=== PATIENT | male | born 1985 | race Caucasian/White ===

== ENCOUNTER 2022-06-12 21:42 | Emergency (ER) | payer BC, SELFPAY ==
--- NOTE | ~2022-06-12 | CT_ITS ---
EXAMINATION: CT ABDOMEN AND PELVIS WITH CONTRAST CLINICAL INFORMATION: Right kidney stone, status post lithotripsy. COMPARISON: Renal ultrasound 10/03/2014. TECHNIQUE: Multidetector volumetric images were obtained from the superior aspect of the liver through the pubic symphysis following administration 85 mL of Omnipaque 350 intravenous contrast. Sagittal and coronal reformatted images were obtained on the technologist's workstation. Oral contrast: No This CT examination was performed using dose optimization techniques as appropriate, variously including the following: *Automated exposure control *Adjustment of mA and/or kV according to patient size (this includes techniques or standardized protocols for targeted exams where dose is matched to indication/reason for exam; i.e. extremities or head) *Use of iterative reconstruction technique DLP: 563 mGy-cm FINDINGS: LUNG BASES: Right greater than left bibasilar subsegmental atelectasis versus scarring. No focal consolidation or pleural effusion. Symmetric gynecomastia. LIVER, GALLBLADDER, AND BILIARY TREE: The liver is normal in size, shape, and attenuation. No focal hepatic lesion or biliary ductal dilatation is present. The gallbladder is unremarkable with no evidence of radiopaque gallstones, gallbladder wall thickening, or obvious pericholecystic inflammatory changes. PANCREAS: Unremarkable. SPLEEN: Unremarkable. ADRENAL GLANDS: Unremarkable. KIDNEYS AND URETERS: There is a right ureteral stent projecting from the renal pelvis up to the urinary bladder with moderate hydroureteronephrosis and mild periureteric fat stranding/free fluid. Slightly asymmetrically delayed right nephrogram. There is a cluster of calculi within a right lower pole calyx measuring conjunction up to 1.2 cm (3:39). There are a few nonspecific hyperattenuating foci layering in the posterior surface of the right renal pelvis, for instance image 38 series 3 that could represent fragments of calculi. Similarly posterior to the stent in the ureter at the level of L3 (3:45) and L5-S1 (3:61) there are additional hyperattenuating foci. There is a 0.5 cm nonobstructive calculus in the upper the mid left kidney (3:32). Otherwise, normal left kidney. BLADDER: Unremarkable. GASTROINTESTINAL TRACT: The small and large bowel are unremarkable. The appendix is unremarkable. ABDOMINAL WALL: No significant hernia is appreciated. LYMPH NODES: No lymphadenopathy. VASCULAR: Unremarkable. PELVIC VISCERA: Unremarkable. OSSEOUS STRUCTURES: No acute or aggressive appearing osseous abnormalities. CT/CT abdomen pelvis w IV con IMPRESSION: 1. Moderate right hydroureteronephrosis with a right ureteral stent in place. There is mild associated periureteric inflammatory changes and slightly delayed right-sided nephrogram. Recommend clinical correlation for superimposed infection, although these changes are likely postprocedural and reactive in nature. 2. Cluster of calculi within a right lower pole calyx measuring in conjunction up to 1.2 cm. 3. There are a few hyperattenuating foci layering in the posterior surface of the right renal pelvis and in the right ureter at the level of L3 and L5-S1 that could represent fragments of calculi in the setting of recent lithotripsy. 4. There is a 0.5 cm nonobstructive calculus in the left kidney.
[2022-06-12 21:51] VITALS: BP 172/108; BP 176/114; PULSE 70; PULSE 72; RESP 20; TEMP 36.6; O2SAT 98; O2SAT 99; BMI 25.1
--- NOTE | 2022-06-12 22:13 | ED.GENADULT ---
HPI - General Adult General Chief complaint: General Medical Stated complaint: Right Flank Pain Time Seen by Provider: 06/12/22 22:08 Source: patient Mode of arrival: EMS Limitations: no limitations History of Present Illness HPI narrative: 36-year-old male who presents emergency department for evaluation of right flank pain and hematuria. The patient states that he had a large right ureteral stone measuring 1.2 cm which was treated with lithotripsy and stenting on ( 3 days prior to evaluation). He states that he was feeling fine yesterday but today had sudden onset of severe right flank pain which she describes as sharp pain that radiates to his groin, the pain is 10 out 10. He has had associated nausea with no vomiting. He has noted hematuria but denies dysuria. Related Data Previous Rx's Medication Instructions Recorded ciprofloxacin HCl 500 mg tablet 500 mg PO Q12H 5 days #10 tabs 06/13/22 (Cipro) hydromorphone 2 mg tablet 2 mg PO Q4-6H PRN pain #14 tabs 06/13/22 (Dilaudid) Allergies Allergy/AdvReac Type Severity Reaction Status Date / Time No Known Allergies Allergy Verified 06/12/22 21:57 Review of Systems Review of Systems: Yes all other systems are reviewed and are negative [facility] Past Medical History [facility] Narrative: Past medical history: Kidney stones. Social history: He denies tobacco, alcohol and Drug use. Social History Social History Advance Directives: Yes Advance Directives Information Provided: No Advance Directives on File: No Physical Exam ED Vital Signs: Vital Signs - 24 hr 06/12/22 21:51 06/12/22 23:38 06/13/22 00:25 Temperature 97.9 F Pulse Rate 70 103 H Respiratory Rate 20 19 34 H Blood Pressure 172/108 H 160/106 H Pulse Oximetry 99 96 Oxygen Delivery Method Room Air Room Air BMI result Body Mass Index 25.1 Const Other: Patient appears to be in distress secondary to his pain, answers all questions appropriately [facility] Head: Yes normal to inspection, Yes normocephalic and Yes atraumatic Ears: external ears normal General nose exam: Normal external nose present Face and sinus: Yes normal facial exam Mouth: Normal oral and palatal mucosa present Throat: Yes posterior oropharynx normal Eyes General: appearance normal, both eyes and all related structures Pupils: Equal, round and reactive pupils present Neck Neck: Yes normal visual inspection, Yes no lymphadenopathy, Yes trachea midline and Yes supple Chest Chest palpation & inspection: normal inspection of the chest and normal palpation of entire chest wall Resp Effort & Inspection: normal respiratory effort and able to speak in complete sentences Auscultation: clear to auscultation bilaterally Cardio Rate: regular rate Rhythm: regular rhythm Heart sounds: S1 normal heart sound present, S2 normal heart sound present and no murmurs GI Inspection: Yes normal to inspection Palpation (GI): Soft to palpation, nontender and no guarding Auscultation: normal bowel sounds General: Yes no CVA tenderness Back/Spine/Pelvis Back: no CVA tenderness Skin General skin exam: no rashes or lesions noted Neuro Cranial nerves: Yes CN's II-XII intact bilaterally and Yes Equal, round and reactive pupils present Cognition (Neuro): normal cognition Motor exam (neuro): 5/5 motor strength present throughout Extrem General: Yes normal to inspection Psych Appearance: grossly normal Speech and movement: Normal speech and movement present Affect: normal affect Attitude: cooperative Medications Administered Discontinued Medications Generic Name Dose Route Start Last Admin Trade Name Layoq PRN Reason Stop Dose Admin Hydromorphone HCl 1 mg 06/12/22 22:21 06/12/22 22:37 Hydromorphone Hcl 1 Mg/Ml Syringe IVPUSH 06/12/22 22:22 1 mg ONCE STA Administration Protocol Hydromorphone HCl 1 mg 06/13/22 00:10 06/13/22 00:25 Hydromorphone Hcl 1 Mg/Ml Syringe IVPUSH 06/13/22 00:11 1 mg ONCE STA Administration Protocol Sodium Chloride 1,000 mls @ 999 mls/hr 06/12/22 22:21 06/12/22 23:38 Ns IV 06/12/22 23:21 Infused .Q1H1M STA Infusion Iohexol 85 ml 06/12/22 23:55 06/13/22 00:04 Iohexol 350 Mg/Ml 100 Ml Infus..Btl IV 06/12/22 23:56 85 ml ONCE ONE Administration Ondansetron HCl 4 mg 06/12/22 22:21 06/12/22 22:37 Ondansetron Hcl 4 Mg/2 Ml Vial IVPUSH 06/12/22 22:22 4 mg ONCE ONE Administration Medical Decision Making Medical Decision Making MDM Narrative: 36-year-old male who who had a urologic procedure 3 days prior for a right-sided 1.2 cm ureteral stone, he states he does have a stent in place. He states he felt fine yesterday but today developed severe, sharp, right sided flank pain radiating to his groin. He also developed hematuria. Patient states that he was given medications by his urologist but these were not helping therefore he called an ambulance and came to the emergency department for evaluation. Patient's vital signs did reveal an elevated blood pressure of 170/ 108 this is most likely caused by his pain. Patient had no significant Abdominal or CVA tenderness. Plan: CBC, CMP, PT /INR, PTT, lipase, CT abdomen pelvis without IV contrast Treatment: Normal saline x1 L, Dilaudid 1 mg IV, Zofran 4 mg IV 0136: Laboratory evaluation interpretation: WBC elevated 15,600. Glucose elevated 124. Urinalysis revealed 3+ blood, moderate leukocyte esterase, positive nitrates. Microscopic revealed greater than 20 RBCs, 21-50 WBCs with no bacteria. CT scan of the abdomen pelvis without IV contrast had multiple findings, the stent appears to be in a good position, there is a + of stones in the renal pelvis measuring 1.2 cm which was the size of the original stone. There are inflammatory changes of ureter with moderate right hydronephrosis. Impression is that these findings are consistent with expected post laser treatment and stent placement. The patient did require 2 more doses of Dilaudid 1 mg IV in order to help his pain. Given the number of white blood cells in his urine I will treat the patient for possible urinary tract infection with Levaquin 500 mg orally. He was given a prescription for ciprofloxacin 500 mg q.12 hours x5 days. Was advised to take Tylenol and ibuprofen for pain and also given a prescription for Dilaudid to treat pain not relieved by the other 2 medications. Differential Diagnosis differential includes was not limited to ureteral stone, pyelonephritis, UTI, stent displacement Lab Data [facility] Lab Attestation statement: I reviewed the patient's lab results. 06/12/22 22:53 06/12/22 22:53 Labs: Lab Results 06/12/22 06/12/22 06/12/22 Range/Units 22:53 22:53 22:53 WBC 15.6 H (4.8-10.8) X10*3/uL RBC 4.90 (4.60-5.80) X10*6/uL Hgb 15.0 (14.0-18.0) g/dl Hct 42.5 (42.0-52.0) % MCV 86.7 (80.0-98.0) fL MCH 30.6 (27.0-33.0) pg MCHC 35.3 (31.0-36.0) g/dl RDW 11.9 (11.0-16.0) % Plt Count 230 (160-400) X10*3/uL MPV 9.9 (9.4-12.4) fL Immature Gran % (Auto) 0.3 (0.0-0.4) % Neut % (Auto) 86.7 H (45-73) % Lymph % (Auto) 7.2 L (20-40) % [place] % (Auto) 5.1 (2-11) % Eos % (Auto) 0.4 (0-4) % Baso % (Auto) 0.3 (0-2) % Lymph # (Auto) 1.1 L (1.2-4.9) X10*3/uL [place] # (Auto) 0.8 (0.1-1.2) X10*3/uL Eos # (Auto) 0.1 (0.0-0.4) X10*3/uL Baso # (Auto) 0.0 (0.0-0.2) X10*3/uL Abs Immat Gran (auto) 0.05 H (0.00-0.03) X10*3/uL Absolute Neuts (auto) 13.6 H (2.0-8.3) x10*3/uL Absolute Nucleated RBC 0.000 (0.0-0.012) X10*3/uL Nucleated RBC % (auto) 0.0 (0.0-0.2) /100WBC PT 10.0 (10.0-13.1) SEC INR 0.9 (0.9-1.1) APTT 29.1 (26.0-36.4) SEC Sodium 138 (135-145) mmol/L Potassium 3.7 (3.3-5.1) mmol/L Chloride 105 (96-108) mmol/L Carbon Dioxide 25 (22-29) mmol/L Anion Gap 12 (12-20) BUN 16 (9-16) mg/dL Creatinine 0.88 (0.5-1.4) mg/dL Estim Creat Clear Calc 122.1 Estimated GFR > 60 Random Glucose 124 H (60-115) mg/dL Calcium 8.2 L (8.4-10.2) mg/dL Total Bilirubin 0.5 (0.0-1.0) mg/dL AST 13 (5-37) U/L ALT 17 (0-40) U/L Alkaline Phosphatase 75 (39-117) U/L Total Protein 5.8 L (6.5-8.0) g/dL Albumin 3.5 (3.5-5.0) g/dL Lipase 21 (8-78) U/L Urine Color Urine Appearance Urine pH (5.0-9.0) Ur Specific [place] (1.005-1.025) Urine Protein (Neg-Trace) mg/dL Urine Glucose (UA) (Negative) mg/dL Urine Ketones (Negative) mg/dL Urine Blood (Negative) Urine Nitrite (Negative) Ur Leukocyte Esterase (Negative) Urine RBC (0-2) /HPF Urine WBC (0-5) /HPF Ur Squamous Epith Cells (0-2) /HPF Urine Bacteria (None Seen) Hyaline Casts (0-2) /LPF 06/13/22 Range/Units 00:55 WBC (4.8-10.8) X10*3/uL RBC (4.60-5.80) X10*6/uL Hgb (14.0-18.0) g/dl Hct (42.0-52.0) % MCV (80.0-98.0) fL MCH (27.0-33.0) pg MCHC (31.0-36.0) g/dl RDW (11.0-16.0) % Plt Count (160-400) X10*3/uL MPV (9.4-12.4) fL Immature Gran % (Auto) (0.0-0.4) % Neut % (Auto) (45-73) % Lymph % (Auto) (20-40) % [place] % (Auto) (2-11) % Eos % (Auto) (0-4) % Baso % (Auto) (0-2) % Lymph # (Auto) (1.2-4.9) X10*3/uL [place] # (Auto) (0.1-1.2) X10*3/uL Eos # (Auto) (0.0-0.4) X10*3/uL Baso # (Auto) (0.0-0.2) X10*3/uL Abs Immat Gran (auto) (0.00-0.03) X10*3/uL Absolute Neuts (auto) (2.0-8.3) x10*3/uL Absolute Nucleated RBC (0.0-0.012) X10*3/uL Nucleated RBC % (auto) (0.0-0.2) /100WBC PT (10.0-13.1) SEC INR (0.9-1.1) APTT (26.0-36.4) SEC Sodium (135-145) mmol/L Potassium (3.3-5.1) mmol/L Chloride (96-108) mmol/L Carbon Dioxide (22-29) mmol/L Anion Gap (12-20) BUN (9-16) mg/dL Creatinine (0.5-1.4) mg/dL Estim Creat Clear Calc Estimated GFR Random Glucose (60-115) mg/dL Calcium (8.4-10.2) mg/dL Total Bilirubin (0.0-1.0) mg/dL AST (5-37) U/L ALT (0-40) U/L Alkaline Phosphatase (39-117) U/L Total Protein (6.5-8.0) g/dL Albumin (3.5-5.0) g/dL Lipase (8-78) U/L Urine Color Dark Yellow Urine Appearance Clear Urine pH 6.5 (5.0-9.0) Ur Specific [place] 1.020 (1.005-1.025) Urine Protein 100 (2+) H (Neg-Trace) mg/dL Urine Glucose (UA) Negative (Negative) mg/dL Urine Ketones Negative (Negative) mg/dL Urine Blood Large (3+) H (Negative) Urine Nitrite Positive H (Negative) Ur Leukocyte Esterase Moderate (2+) H (Negative) Urine RBC >20 H (0-2) /HPF Urine WBC 21-50 H (0-5) /HPF Ur Squamous Epith Cells 0-2 (0-2) /HPF Urine Bacteria None Seen (None Seen) Hyaline Casts 0-2 (0-2) /LPF ABG Data Attestation ABG: I personally reviewed and interpreted this ABG as follows: Radiology Impression Discussion of test interpretation with radiology: I have reviewed the radiologist's reading. Radiologist Impression: CT abdomen pelvis w IV con IMPRESSION: 1. Moderate right hydroureteronephrosis with a right ureteral stent in place. There is mild associated periureteric inflammatory changes and slightly delayed right-sided nephrogram. Recommend clinical correlation for superimposed infection, although these changes are likely postprocedural and reactive in nature. 2. Cluster of calculi within a right lower pole calyx measuring in conjunction up to 1.2 cm. 3. There are a few hyperattenuating foci layering in the posterior surface of the right renal pelvis and in the right ureter at the level of L3 and L5-S1 that could represent fragments of calculi in the setting of recent lithotripsy. 4. There is a 0.5 cm nonobstructive calculus in the left kidney. Dictated By:Yajaira DialloSigned By:<Electronically signed by Yajaira Diallo in [place]>06/13/22 0032 Discharge Plan Discharge Clinical Impression: Renal colic on right side, Urinary tract infection Patient Disposition: Home, Self-Care Instructions: Urinary Tract Infection in Men (ED), Renal Colic (ED) Additional Instructions: Your blood work did reveal an elevated white blood count 66004. Your kidney function was normal. Your urine did reveal 20-50 white blood cells and greater than 20 red blood cells. You did not have any bacteria in your urine however given the number of white blood cells in the urine I am going to treat you for possible urine infection. You received Levaquin 500 mg orally here in the emergency department. This drug last 24 hours. Take ciprofloxacin 500 mg every 12 hours, take your 1st dose today at 9pm Take ibuprofen 200 mg pills, 2 pills every 6 hours as needed for pain. Take Tylenol (acetaminophen) 500 mg pills, 2 pills every 6 hours as needed for pain. For pain not relieved by ibuprofen or Tylenol take Dilaudid 2 mg pills, 1 pill every 4 hours as needed for pain. Do not drive or work while taking this medication since they can cause sleepiness. Oxycodone is a narcotic medication that can be addicting. If you are concerned about addiction you can ask the pharmacist for less pills or do not get this prescription filled. Please call your urologist on Tuesday morning to discuss the CT scan findings and your pain. Please return to the emergency department if your symptoms get worse or if you develop any symptoms that are concerning to you. Prescriptions: New ciprofloxacin HCl [Cipro] 500 mg tablet 500 mg PO Q12H 5 Days Qty: 10 0RF hydromorphone [Dilaudid] 2 mg tablet 2 mg PO Q4-6H PRN (Reason: pain) Qty: 14 0RF Rx Instructions: Patient may request partial fill; Partial Fill upon patient request.
[2022-06-12] MEDS: 0.9 % Sodium Chloride 1,000 ML 999 ML IV (22:37)
[2022-06-12] MEDS: HYDROmorphone HCl 1 MG/ML SYRINGE IVPUSH (22:37)
[2022-06-12] MEDS: ondansetron HCL 4 MG/2 ML VIAL IVPUSH (22:37)
[2022-06-12 23:00] LABS: Basophils Percent Auto 0.3 % (0-2); Eosinophils Absolute Auto 0.1 X10*3/uL (0.0-0.4); Eosinophils Percent Auto 0.4 % (0-4); Hematocrit 42.5 % (42.0-52.0); Imm Gran Abs Auto 0.05 X10*3/uL (0.00-0.03); Imm Gran Pct Auto 0.3 % (0.0-0.4); Lymphocytes Absolute Auto 1.1 X10*3/uL (1.2-4.9); Lymphocytes Percent Auto 7.2 % (20-40); MANUAL DIFF FLAG NO; Mean Corpuscular HGB Conc 35.3 g/dl (31.0-36.0); Mean Corpuscular Hemoglobin 30.6 pg (27.0-33.0); Mean Corpuscular Volume 86.7 fL (80.0-98.0); Mean Platelet Volume 9.9 fL (9.4-12.4); Monocytes Absolute Auto 0.8 X10*3/uL (0.1-1.2); Monocytes Percent Auto 5.1 % (2-11); Neutrophils Absolute Auto 13.6 x10*3/uL (2.0-8.3); Neutrophils Percent Auto 86.7 % (45-73); Platelet Count 230 X10*3/uL (160-400); Red Cell Distribution Width 11.9 % (11.0-16.0); White Blood Count 15.6 X10*3/uL (4.8-10.8)
[2022-06-12 23:07] LABS: INTERNATIONAL NORM RATIO 0.9 (0.9-1.1)
[2022-06-12 23:10] LABS: Partial Thromboplastin Time 29.1 SEC (26.0-36.4)
[2022-06-12 23:19] LABS: Alanine Aminotransferase 17 U/L (0-40); Albumin Level 3.5 g/dL (3.5-5.0); Alkaline Phosphatase 75 U/L (39-117); Anion Gap 12 (12-20); Aspartate Amino Transferase 13 U/L (5-37); Bilirubin Total 0.5 mg/dL (0.0-1.0); Blood Urea Nitrogen 16 mg/dL (9-16); Calcium 8.2 mg/dL (8.4-10.2); Carbon Dioxide 25 mmol/L (22-29); Chloride 105 mmol/L (96-108); Creatinine Clr Calc Pharmacy 122.1; Estimated Glomerular Filt Rate > 60; Glucose Random 124 mg/dL (60-115); Lipase 21 U/L (8-78); Potassium 3.7 mmol/L (3.3-5.1); Sodium 138 mmol/L (135-145); Total Protein 5.8 g/dL (6.5-8.0)
[2022-06-12 23:38] VITALS: BP 160/106; PULSE 103; RESP 19; O2SAT 96
[2022-06-13] MEDS: iohexoL 350 MG/ML 100 ML INFUS..BTL 85 ML IV (00:04)
[2022-06-13 00:25] VITALS: RESP 34
[2022-06-13] MEDS: HYDROmorphone HCl 1 MG/ML SYRINGE IVPUSH ×2 (00:25→02:04)
[2022-06-13 01:01] LABS: Appearance Urine Clear; Color Urine Dark Yellow; Glucose Urine UA Negative (Negative); Leukocyte Esterase Urine Moderate (2+) (Negative); Nitrite Urine Positive (Negative); PH 6.5 (5.0-9.0); UMIC TRIGGER UACC YES; Urine Blood Large (3+) (Negative); Urine Ketones Negative (Negative); Urine Protein 100 (2+) mg/dL (Neg-Trace)
[2022-06-13 01:14] LABS: RBC Urine >20 /HPF (0-2); UACC Culture Trigger YES; WBC Urine 21-50 /HPF (0-5)
[2022-06-13 01:15] LABS: Bacteria Urine None Seen (None Seen); Hyaline Casts Urine 0-2 /LPF (0-2); Squamous Epithelial Cell Urine 0-2 /HPF (0-2)
[2022-06-13] MEDS: levoFLOXacin 500 MG TABLET PO (02:02)
[2022-06-13 02:04] VITALS: RESP 15
[2022-06-13 02:05] VITALS: BP 150/109; PULSE 99; RESP 15; TEMP 36.7; O2SAT 97
== END 2022-06-13 02:26 | disposition home or self-care (01) ==
PROVIDERS: Emergency Provider Emergency Medicine Emergency Medical Services; PCP Pediatrics
DX: N23 Unspecified renal colic (principal); G89.18 Other acute postprocedural pain; Z96.0 Presence of urogenital implants; Z87.442 Personal history of urinary calculi
CPT/HCPCS: 36415; 74177; 80053; 81001; 81003; 83690; 85025; 85610; 85730; 87086; 96361; 96374; 96375; 96376; 99284; J1170; J2405; Q9967